=== PATIENT | male | born 1940 | race Caucasian/White ===

== ENCOUNTER 2017-12-25 05:22 | Emergency (ER) | payer MEDICARE, OTHER ==
[~2017-12-25] VITALS: Ht 167.6 cm; Wt 93.8 kg
[2017-12-25 05:42] VITALS: BP 153/70
[2017-12-25] MEDS ORDERED: FAMOTIDINE 20 MG TABLET ONE (05:49)
[2017-12-25] MEDS ORDERED: FAMOTIDINE 20 MG TABLET PO ONE (06:00)
== END 2017-12-25 06:08 | disposition home or self-care (01) ==
LOC: ED 06:02
DX: L50.9 Urticaria, unspecified (principal); E78.00 Pure hypercholesterolemia, unspecified; I10 Essential (primary) hypertension
CPT/HCPCS: 99283; J7512